=== PATIENT | female | born 2000 | race Two or more races ===

== ENCOUNTER 2024-05-14 14:00 | Outpatient (RCR) | payer OTHER, SELFPAY | END 2024-05-14 14:39 | disposition home or self-care (01) | LOC: HO.OT 14:00 | PROVIDERS: PCP Physician Assistant; Visit Provider Surgery | DX: S60.221A Contusion of right hand, initial encounter (principal); M25.511 Pain in right shoulder | CPT/HCPCS: 97110; 97140; 97165; 97530 ==